=== PATIENT | male | born 1955 | race Caucasian/White ===

== ENCOUNTER → 2021-02-07 | Day surgery (SDC) | payer OTHER ==
[~2021-02-07] VITALS: Ht 167.6 cm; Wt 95.2 kg
[~2021-02-07] MED LIST: ALBUTEROL2.5 MG/3 M NEB; AMARYL2 MG PO; AZITHROMYCIN250 MG PO; COZAAR100 MG PO; FLUTICASONE-SA1 EAC4 INH; GABAPENTIN300 MG PO; MEDROL 4MG DOSEP4 MG PO; METFORMIN HCL500 MG PO; MOTRIN600 MG PO; MUCINEX 600MG600 MG PO; OSELTAMIVIR PHO75 MG PO; PERCOCET 5-3251 EACH PO; PREDNISONE 20MG20 MG PO; PREDNISONE5 MG PO; ROBAXIN750 MG PO; TRELEGY ELLIPT1 EAC1 PO; VALSARTAN160 MG PO; VENTOLIN HFA IN18 GM INH; VOLTAREN **OUT75 MG PO
== END | disposition home or self-care (01) ==
LOC: FAS 10:03
DX: Z12.11 Encounter for screening for malignant neoplasm of colon (principal); D12.2 Benign neoplasm of ascending colon; J44.9 Chronic obstructive pulmonary disease, unspecified; I10 Essential (primary) hypertension; E78.00 Pure hypercholesterolemia, unspecified; Z79.84 Long term (current) use of oral hypoglycemic drugs; Z79.899 Other long term (current) drug therapy; Z87.891 Personal history of nicotine dependence
CPT/HCPCS: J2250; J2704; J7120